=== PATIENT | female | born 1965 | race Caucasian/White ===

== ENCOUNTER 2024-07-28 09:25 | Emergency (ER) | payer MEDICAID ==
[2024-07-28] MEDS ORDERED: Cyclobenzaprine 10 MG TAB ONE (12:02)
[2024-07-28] MEDS ORDERED: Lidocaine 4% Patch ONE (12:02)
== END 2024-07-28 13:06 | disposition home or self-care (01) ==
LOC: CSHERS 09:25
DX: M54.50 Low back pain, unspecified (principal); I10 Essential (primary) hypertension; I12.9 Hypertensive chronic kidney disease with stage 1 through stage 4 chronic kidney disease, or unspecified chronic kidney disease; E11.22 Type 2 diabetes mellitus with diabetic chronic kidney disease; N18.30 Chronic kidney disease, stage 3 unspecified; F17.200 Nicotine dependence, unspecified, uncomplicated; W18.12XA Fall from or off toilet with subsequent striking against object, initial encounter
CPT/HCPCS: 72131